=== PATIENT | female | born 1965 | race Caucasian/White ===

== ENCOUNTER 2016-08-08 19:40 | Emergency (ER) | payer BC ==
--- NOTE | 2016-08-09 02:04 | ED ORDER SUMMARY ---
..... Patient: RIZWAN GOFF OrderSheet [facility] VisitID: [id number] [place] [address] 51y, F Registration Date/Time: 08/08/2016 ORDER SHEET Weight: 126.5 kg (stated) Allergies: No Known Drug Allergy GENERAL ORDERS: CBC w Diff [facility]20[facility]34 [facility] (Ack 20:38 [facility] Work[facility]) (21:18 JSanders R.N.) CMP Urgent (20:34 08/08/2016 [facility] (Ack 20:38 [facility] Work[facility]) (21:18 JSanders R.N.) UA-Culture if indicated Urgent (20:34 08/08/2016 [facility] ) (Ack 20:38 [facility] Aquac[facility] Worker) (20:56 JSanders R.N.) PT with INR Urgent (20:34 08/08/2016 [facility] (Ack 20:38 [facility]ac[facility] Worker) (21:18 JSanders R.N.) Bladder Scan (20:34 08/08/2016 [facility]) (Ack 20:56 JSanders R.N.) (21:18 JSanders R.N.) Urine Drug Screen Urgent (20:37 08/08/2016 [facility] (Ack 20:38 [facility] Worker) (20:56 JSanders R.N.) Urine Urgent (20:37 08/08/2016 [facility] ) (Ack 20:38 [facility]ac[facility] Worker) (21:18 JSanders R.N.) MEDICATION ORDERS: IV FLUIDS: IV NS : initial bolus 500 mL (1000 mL/hr), then 250 mL/hr for X2 (NOW) (20:34 08/08/2016 [facility] DO) (Ack 20:56 JSanders R.N.) (21:19 JSanders R.N.) Solu-MEDROL IV 125 mg (NOW) (20:51 08/08/2016 [facility] DO) (Ack 20:56 JSanders R.N.) (21:24 JSanders R.N.) Dilaudid IV 0.5 mg (HIGH ALERT MEDICATION, NOW) (20:51 08/08/2016 [facility]) (Ack 20:56 JSanders R.N.) (21:20 JSanders R.N.) Zofran IV 4 mg (NOW) (20:52 08/08/2016 [facility]) (Ack 20:56 JSanders R.N.) (21:22 JSanders R.N.) ORDER SHEET NOTES: [Electronically signed by Vale Claudio R.N. (05:43 08/09/2016)] [Electronically signed by Misael Rosas MD (09:30 08/09/2016)] [Electronically locked/signed by Vale Claudio R.N. (05:43 08/09/2016)]
--- NOTE | 2016-08-09 02:04 | ED NURSING NOTES ---
Clinical Report - Nurses [facility] [address] [place] [address] 08/08/2016 19:41 Patient: RIZWAN GOFF TRIAGE Triage time 20:2016. Acuity: LEVEL 3. Chief Complaint: BACK PAIN. 20:30 08/08/16. SEPSIS SCREEN: Sepsis Screen. Negative (no infection suspected/documented). LYNNE COMA SCORE: [place] Coma Scale: 15- eyes open spontaneously (4); best verbal response- oriented x 4 (5); best motor response- obeys commands (6). --20:30 Vale Claudio R.N. 20:22 08/08/16. BP: 157/92 (large adult cuff) taken on the left arm, while sitting. HR: 88. RR: 18. O2 saturation: 98% on room air. Temp: 98.7 F (oral). Pain level now: 07/04. --20:30 Vale Claudio R.N. Weight: 126.5 kg stated. Height/Length: 62 inches Per Patient. BMI: 51.1. --20:26 Vale Claudio R.N. Medications Flonase Nasal. --20:25 Vale Claudio R.N. Qvar Inhalation. --20:25 Vale Claudio R.N. Claritin Oral. --20:25 Vale Claudio R.N. Triamterene-HCTZ Oral. --20:26 Vale Claudio R.N. Allergies No Known Drug Allergy. --20:25 Vale Claudio R.N. History Arrived by private vehicle. Historian: patient. Onset. (3 years ago back pain L5 buldging disc and arthritis, recently has had some bowel and urine incontinence). She has had numbness, weakness, tingling, and trouble walking. Treatment PIPING DESIGNER: (Steroids just got off Saturday). PAST MEDICAL HX: Hypertension. Last normal menstrual period now- days ago. SOCIAL HX: Smoker- current status unknown. No alcohol use or drug use. No infectious disease exposure. ABUSE ASSESSMENT: No report of abuse. SELF HARM ASSESSMENT: A self harm assessment was performed. The patient answered "no" to the question "Are you here because you tried to hurt yourself?" and "Have you recently had thoughts about harming or killing others?". --20:30 Vale Claudio R.N. PROBLEMS: Cervical Strain. Bronchitis. Asthma. --20:25 Vale Claudio R.N. ADDITIONAL SURGERIES: Cholecystectomy. Tonsillectomy. --20:25 Vale Claudio R.N. Interventions ID band on patient. To treatment room. --20:30 Vale Claudio R.N. PHYSICAL ASSESSMENT 20:30 08/08/16. Ambulatory to room. Patient gowned. GENERAL / NEURO / PSYCH: Alert. Oriented X 4. Appears in no acute distress. Appears in pain. RESPIRATORY: Respirations not labored. Chest nontender. Breath sounds within normal limits. CVS: Normal heart rate and rhythm. Capillary refill less than 2 seconds. GI / : Abdomen soft and nontender. Bowel sounds within normal limits. CVA tenderness on the left. EXTREMITIES: Sensation intact in extremities. ROM of extremities within normal limits. BACK: Normal inspection of the neck and back. Soft tissue tenderness in the left mid and lower lumbar paraspinous region. --20:30 Vale Claudio R.N. NURSING PROGRESS NOTES 20:31 08/08/16. The plan of care for this patient has been created. Monitoring of patient in place. Patient gowned. Head of bed elevated. Reassurance given. Two patient identifiers checked. Call light placed in reach. Side rails up x 1. Bed placed in lowest position. Brakes of bed on. Patient ready for evaluation- chart flagged and PA notified. --20:31 Vale Claudio R.N. 21:04 08/08/2016 Site #1 started via IV in the left antecubital space with an 20g angiocath; one attempt. Blood drawn: rainbow set. Labeled in the presence of the patient and sent to the lab. Saline lock flushed with 10 mL saline. --21:19 Vale Claudio R.N. 21:19 08/08/2016 Started bag #1 1000 mL IV Fluids IV NS (Saline); bolus of 500 mL over 30 minute(s) then at 1000 mL/hr over 1 hour(s) via site #1 via IV pump. Allergies verified and confirmed 5 rights. IV patency established. IV site checked: no pain, redness, or swelling. IV flushed thoroughly pre- and post-medication administration. --21:19 Vale Claudio R.N. 21:20 08/08/2016 Dilaudid (HYDROmorphone HCl PF) IVP 0.5 mg given over 1 minute(s) via site #1. Allergies verified, confirmed 5 rights and sedative warning given to the patient. IV patency established. IV site checked: no pain, redness, or swelling. IV flushed thoroughly pre- and post-medication administration. IVP given by RN. --21:20 Vale Claudio R.N. 21:22 08/08/2016 Zofran (Ondansetron HCl) IVP 4 mg given over 1 minute(s) via site #1. Allergies verified and confirmed 5 rights. IV patency established. IV site checked: no pain, redness, or swelling. IV flushed thoroughly pre- and post-medication administration. IVP given by RN. --21:22 Vale Claudio R.N. 21:24 08/08/2016 SOLU-MEDROL (MethylPREDNISolone Sodium Succ) IVP 125 mg given over 2 minute(s) via site #1. Allergies verified and confirmed 5 rights. IV patency established. IV site checked: no pain, redness, or swelling. IV flushed thoroughly pre- and post-medication administration. IVP given by RN. --21:24 Vale Claudio R.N. 21:26 08/08/16. ( Bladder scan revealed 19cc). --21:26 Vale Claudio R.N. 21:25 08/08/16. BP: 152/71 (large adult cuff) taken on the right arm, while sitting. HR: 88. RR: 18. O2 saturation: 94% on room air. Pain level now: 0/10. --21:26 Vale Claudio R.N. 21:48 08/08/2016 IV Fluids IV NS via IV site #1 Rate Changed: bag #1 decreased to 250 mL/hr via IV pump. IV patency established. IV site checked: no pain, redness, or swelling. IV flushed thoroughly. Confirmed 5 Rights. --21:48 Vale Claudio R.N. 21:48 08/08/2016 Dilaudid IVP Response: no adverse reaction pain is gone now. Symptoms have improved the patient feels better. --21:49 Vale Claudio R.N. 21:49 08/08/2016 Zofran IVP Response: no adverse reaction pain is gone now. Symptoms have improved the patient feels better. --21:49 Vale Claudio R.N. 21:49 08/08/16. BP: 158/92 (large adult cuff) taken on the right arm. HR: 80. RR: 18. O2 saturation: 100% on room air. Pain level now: 2/10. --21:50 Vale Claudio R.N. 21:50 08/08/16. ( warm blanket given, lights dimmed, resting until transfer comes to take to [facility] for MRI). --21:50 Vale Claudio R.N. 22:07 08/08/16. BP: 126/76 (large adult cuff) taken on the right arm. HR: 78. RR: 18. O2 saturation: 99% on room air. Pain level now: 0/10. --22:09 Vale Claudio R.N. 22:09 08/08/16. ( Transport here for patient. Patient has no pain, she is ready to be transported, pain 0, hydration stopped. Paperwork printed). --22:09 Vale Claudio R.N. 22:22 08/08/16. Patient transported to [facility] by stretcher with nurse. (22:Aug 08 2016). ( Patient transported to [facility]). --22:22 Vale Claudio R.N. 00:38- Pt returns from [facility] for MRI. --00:45 Sveta Christine R.N. 00:45 08/09/16. BP: 156/81. HR: 88. RR: 15 (regular and unlabored). O2 saturation: 95% on room air. Pain level now: 0/10. --00:46 Sveta Christine R.N. 01:05 08/09/16. ( Patient given ice water). --01:05 Vale Claudio R.N. 01:05 08/09/16. BP: 140/93 (large adult cuff) taken on the right arm, while sitting. HR: 87. RR: 18. O2 saturation: 95% on room air. Pain level now: 04/06. --01:07 Vale Claudio R.N. 01:49 08/09/16. BP: 153/93 (large adult cuff) taken on the right arm. HR: 87. RR: 18. O2 saturation: 95% on room air. Pain level now: 04/06. --01:50 Vale Claudio R.N. 01:50 08/09/16. ( Patient resting quietly, will let her continue to rest). --01:50 Vale Claudio R.N. 22:00 08/09/2016 IV Fluids IV NS Discontinued: bag #1. Total amount infused: 750 mL. IV patency established. IV site checked: no pain, redness, or swelling. IV flushed thoroughly. --05:43 Vale Claudio R.N. DISPOSITION / DISCHARGE 02:24 08/09/2016 Site #1 removed upon discharge. Bandaid applied. --02:25 Vale Claudio R.N. 02:08/09/16. Condition at departure: improved. No learning barriers present. Discharge instructions provided and reviewed with the patient. Reviewed diet (low sodium). Patient verbalized understanding. Written instructions provided in Mauritanian. The patient was discharged by the physician. She was discharged home. She left the Emergency Department ambulatory and via private vehicle. Patient driving. --02:25 Vale Claudio R.N. 02:24 08/09/16. BP: 145/81 (large adult cuff) taken on the right arm, while sitting. HR: 97. RR: 18. O2 saturation: 96% on room air. Temp: 98.3 F (oral). Pain level now: 04/06. --02:25 Vale Claudio R.N. 02:32 08/09/16. Reviewed medication(s) side effects, precautions, dosing and course information. Prescription(s) given to the patient. --02:32 Vale Claudio R.N. Departure time: 02:34 Aug 09 2016. --02:34 Vale Claudio R.N. Locked/Released at 08/09/2016 5:43 by Vale Claudio R.N.
--- NOTE | 2016-08-09 02:04 | ED CLINICAL REPORT ---
Clinical Report - Physicians/Mid Levels [facility] [address] [place] [address] 08/08/2016 19:41 Patient: RIZWAN GOFF Time Seen: 20:33. Arrived- By private vehicle. Historian- patient. HISTORY OF PRESENT ILLNESS Chief Complaint: BACK PAIN. Onset- about 2 months ago; worse in past week and it is still present. It was gradual in onset and has been waxing/waning. Modifying factors- worsened by walking or bending over. Relieved by remaining still. It is described as being moderate in degree. It is described as being in the area of the left upper lumbar spine, left mid lumbar spine, left lower lumbar spine, right upper lumbar spine and right mid lumbar spine. It is described as being in the area of the right lower lumbar spine. The quality is noted to be "pain" and similar to prior episodes. No radiation. Intermittent bladder dysfunction. The bladder dysfunction is described as incontinence. Bowel dysfunction- incontinence. Sensory loss (bilateral feet). Motor loss. Additional history - 3 years ago back pain L5 buldging disc and arthritis, recently has had some bowel and urine incontinence. She has had numbness, weakness, tingling, and trouble walking. Patient notes the possibility of an injury but denies injury to the head or neck. No other injury. Similar symptoms previously: Evaluation/treatment- course of steroids - finished 5 days ago. Recent medical care: The patient was seen recently at another facility. Diagnosis: back pain. REVIEW OF SYSTEMS No fever, skin rash, headache, sore throat or cough. No difficulty breathing, chest pain, abdominal pain, nausea or vomiting. No diarrhea, black stools or bloody stools. She has had difficulty with urination. The patient has had urinary frequency. All systems otherwise negative, except as recorded above. PAST HISTORY Hypertension. She has had prior back pain (with lumbar disc disease seen on MRI 1 year ago - evaluated at the [facility]"). PCP: Chiki Mak. No history of aortic aneurysm. Environmental allergies. Additional Surgeries: Cholecystectomy. Tonsillectomy. Medications: Triamterene-HCTZ Oral. Claritin Oral. Qvar Inhalation. Flonase Nasal. Allergies: No Known Drug Allergy. SOCIAL HISTORY Never smoker. No alcohol use or drug use. Is a local resident. Patient is employed. (works in [place] at [employer]). ADDITIONAL NOTES The nursing notes have been reviewed. PHYSICAL EXAM Vital Signs: 08/08/2016 20:22 BP: 157/92. HR: 88. RR: 18. O2 saturation: 98%. Temp: 98.7 F. Pain level now: 5/10. Appearance: Alert. Patient in mild distress. HEENT: Normal external inspection. Eyes: No scleral icterus or pale conjunctivae. Neck: Normal inspection. Neck nontender. Painless ROM. CVS: Heart sounds normal. Pulses normal. Respiratory: No respiratory distress. Breath sounds normal. Abdomen: No visible injury. Soft and nontender. No organomegaly. No mass. Back: Normal inspection. Mild soft tissue tenderness in the right lower and left lower lumbar area. Skin: Skin warm and dry. Normal skin color. Normal skin turgor. Extremities: Extremities exhibit normal ROM. Extremities nontender. Neuro: Oriented X 3. Mood/affect normal. Sensory deficit present. (bilateral feet). Altered sensation to light touch. Straight leg raising: negative on the right and negative on the left. Reflex exam: right patellar 1+, left patellar 1+, right Achilles 0 and left Achilles 0. LABS, X-RAYS, AND EKG MRI T-Spine: Note- the patient was transferred to [facility] for MRI of the thoracic and lumbar spines. The power and recovery shift engineer radiology preliminary report on the thoracic spine revealed: mild diffuse degenerative changes commensurate with age. No disc herniation or spinal stenosis no abnormal cord signal or epidural hematoma. The study was interpreted contemporaneously by me and discussed with the radiologist. MRI L-Spine: Note- Mild dependent edema in the superficial subcutaneous fat mild degenerative change without disc herniation or spinal stenosis normal conus and cauda equina no abnormal enhancement. The study was interpreted contemporaneously by me and discussed with the radiologist. Laboratory Tests: UA-Culture if indicated: (KIRSTEN: 08/08/2016 20:20) ( MsgRcvd 08/08/2016 21:02) Final results Test Result Flag Units (Reference) URINE COLOR YELLOW URINE APPEARANCE CLEAR URINE GLUCOSE NEGATIVE (NEGATIVE) URINE BILIRUBIN NEGATIVE (NEGATIVE) URINE KETONE NEGATIVE (NEGATIVE) URINE SPECIFIC GRAVITY >= 1.030 (1.010-1.030) URINE PH 6.0 (5.0-8.0) URINE PROTEIN NEGATIVE (NEGATIVE) URINE UROBILINOGEN 0.2 EU/dL (0.2-1.0) URINE NITRITE NEGATIVE (NEGATIVE) URINE BLOOD 3+ (NEGATIVE) URINE LEUK ESTERASE NEGATIVE (NEGATIVE) URINE RBC 10-25 rbc/hpf (0-1) URINE WBC 1-3 wbc/hpf (0-1) URINE EPITHELIAL CELLS 1-3 EPI/hpf (0-5) URINE BACTERIA TRACE (<1+) (NONE SEEN) URINE COMMENT CULT NOT INDICATED 2+ MUCUSURINE CULTURES ARE SET-UP BASED ON THE FOLLOWING CRITERIA:POSITIVE NITRITEPOSITIVE LEUKOCYTE ESTERASEGREATER THAN 10 WHITE BLOOD CELLSMODERATE (2+) OR GREATER BACTERIA Urine: (KIRSTEN: 08/08/2016 20:20) ( [facility] 08/08/2016 20:57) Final results Test Result Flag Units (Reference) URINE NEGATIVE CBC w Diff: (KIRSTEN: 08/08/2016 21:05) ( [facility] 08/08/2016 21:36) Final results Test Result Flag Units (Reference) WHITE BLOOD COUNT 11.3 K/uL (4.5-11.5) RED BLOOD COUNT 4.50 M/uL (4.00-5.20) HEMOGLOBIN 12.3 gm/dL (12.0-16.0) HEMATOCRIT 37.5 % (36.0-46.0) MEAN CELL VOLUME 83 fL (80-100) MEAN CORPUSCULAR HGB 27 pg (26-34) MEAN CORPUSCULAR HGB CONC 33 g/dL (31-37) RED CELL DISTRIBUTION WIDTH 14.4 % (11.6-14.8) PLATELET COUNT 276 K/uL (150-400) NEUTROPHIL % 67.7 % (50-75) LYMPH % 21.5 L % (25-40) MONO % 7.3 % (3-14) EOSINOPHIL % 3.2 % (0-4) BASOPHIL % 0.3 % (0-2) PT with INR: (KIRSTEN: 08/08/2016 21:05) ( [facility] 08/08/2016 21:39) Final results Test Result Flag Units (Reference) INR 0.9 (0.8-1.2) Low Intensity Therapy: INR 1.5-2.0 PT range 18.5-23.1Mod.Intensity Therapy: INR 2.0-3.0 PT range 23.1-31.5High Intensity Therapy: INR 2.5-3.5 PT range 27.4-35.5High Intensity Therapy 2: INR 3.0-4.0 PT range 31.5-39.3 Urine Drug Screen: (KIRSTEN: 08/08/2016 20:20) ( [facility] 08/08/2016 21:07) Final results Test Result Flag Units (Reference) AMPHETAMINE/METHAMPHETAMINE NEGATIVE (NEGATIVE) BARBITURATE NEGATIVE (NEGATIVE) BENZODIAZEPINE NEGATIVE (NEGATIVE) CANNABINOID NEGATIVE (NEGATIVE) COCAINE NEGATIVE (NEGATIVE) ECSTASY NEGATIVE (NEGATIVE) METHADONE NEGATIVE (NEGATIVE) OPIATE NEGATIVE (NEGATIVE) The urine drug screen is a qualitative screening test fordrug overdose and abuse. All screen results should beconsidered as presumptive.Drugs screened for are as follows:BenzodiazepinesCocaineAmphetamines/MetamphetaminesTHC (Tetrahydrocannabinol)OpiatesBarbituratesEcstasyMethadonePositive results are unconfirmed. For confirmation, notifythe lab for the specimen to be sent to the reference lab.All confirmations must be performed by a differentmethodology.The ingestion of natural herbal and plant productscontaining Ephedra/Ephedra metabolites can produce in urineone or more substances capable of cross reacting withamphetamine/methamphetamine immunoassays. These testsprovide a preliminary result only. A more specificalternative chemical method must be used to obtain aconfirmed analytical result. CMP: (KIRSTEN: 08/08/2016 21:05) ( [facility] 08/08/2016 21:40) Final results Test Result Flag Units (Reference) GLUCOSE 87 mg/dL (70-110) BUN 16 mg/dL (7-18) CREATININE 0.7 mg/dL (0.6-1.3) Estimated GFR >60 mL/min Estimated GFR- >60 mL/min Note: Persistent reduction over 3 months in eGFR<60 mL/min/1.73 m2 defines CKD. Patients with eGFR values>=60 mL/min/1.73 m2 may also have CKD if evidence ofpersistent proteinuria. Additional information may be foundat www.kidney.org. SODIUM 143 mmol/L (136-145) POTASSIUM 3.4 L mmol/L (3.5-5.1) CHLORIDE 106 mmol/L (98-107) CARBON DIOXIDE 28 mmol/L (21-32) CALCIUM 8.7 mg/dL (8.5-10.1) TOTAL PROTEIN 7.1 g/dL (6.4-8.2) ALBUMIN 3.5 g/dL (3.3-5.0) BILIRUBIN, TOTAL 0.3 mg/dL (0.0-1.0) ALKALINE PHOSPHATASE 68 U/L (46-116) AST (SGOT) 18 U/L (15-37) ALT (SGPT) 28 U/L (12-78) . PROGRESS AND PROCEDURES Course of Care: 21:05 08/08/16. Care transferred to Dr Misael Rosas secondary to change of shift. Labs, MRI pending - attempting to obtain after hours MRI at [facility] (tech in house completing MRI until 22:00, but after this they may need to call on another tech per warehouse foreman) Dr. Lara and I discussed the patient's history and examination findings. He requested that I follow up on the results of the patient's labs and MRI. I subsequently reviewed the patient's history with her and examined the patient and my findings were consistent with those noted by Dr. Lara. Additionally, I also performed a rectal exam - she had a normal perianal wink and normal sphincter tone. Brown stool on the glove was noted to be guaiac negative. - MW. Patient/family counseled. Old ED records reviewed. Disposition: Discharged. Condition: stable. CLINICAL IMPRESSION Nontraumatic lumbar back pain. Essential hypertension. Urinary incontinence. intermittent incontinence for stool. INSTRUCTIONS (Talk with your primary care provider about what he would benefit from any adjustments to your antihypertensive medications as discussed.). Warnings: GENERAL WARNINGS: Return or contact your physician immediately if your condition worsens or changes unexpectedly, if not improving as expected, or if other problems arise. Your Current Medications: CONTINUE TAKING THE FOLLOWING MEDICATIONS: Claritin Oral. Flonase Nasal. Qvar Inhalation. Triamterene-HCTZ Oral. Prescription Medications: Medrol Dosepak: take according to package directions. Dispense one (1) dosepak. No refills. Substitution is permissible. Follow-up: Follow up with your doctor tomorrow. Call for the next available appointment. Screening today revealed the patient's blood pressure to be in the hypertensive range. The patient should follow up with a primary care provider for blood pressure management. Understanding of the discharge instructions verbalized by patient. (Electronically signed by Misael Rosas MD 08/09/2016 9:30)
--- NOTE | 2016-08-09 02:04 | ED CLINICAL REPORT ---
Clinical Report - Physicians/Mid Levels [facility] [address] [place] [address] 08/08/2016 19:41 Patient: RIZWAN GOFF Time Seen: 20:33. Arrived- By private vehicle. Historian- patient. HISTORY OF PRESENT ILLNESS Chief Complaint: BACK PAIN. Onset- about 2 months ago; worse in past week and it is still present. It was gradual in onset and has been waxing/waning. Modifying factors- worsened by walking or bending over. Relieved by remaining still. It is described as being moderate in degree. It is described as being in the area of the left upper lumbar spine, left mid lumbar spine, left lower lumbar spine, right upper lumbar spine and right mid lumbar spine. It is described as being in the area of the right lower lumbar spine. The quality is noted to be "pain" and similar to prior episodes. No radiation. Intermittent bladder dysfunction. The bladder dysfunction is described as incontinence. Bowel dysfunction- incontinence. Sensory loss (bilateral feet). Motor loss. Additional history - 3 years ago back pain L5 buldging disc and arthritis, recently has had some bowel and urine incontinence. She has had numbness, weakness, tingling, and trouble walking. Patient notes the possibility of an injury but denies injury to the head or neck. No other injury. Similar symptoms previously: Evaluation/treatment- course of steroids - finished 5 days ago. Recent medical care: The patient was seen recently at another facility. Diagnosis: back pain. REVIEW OF SYSTEMS No fever, skin rash, headache, sore throat or cough. No difficulty breathing, chest pain, abdominal pain, nausea or vomiting. No diarrhea, black stools or bloody stools. She has had difficulty with urination. The patient has had urinary frequency. All systems otherwise negative, except as recorded above. PAST HISTORY Hypertension. She has had prior back pain (with lumbar disc disease seen on MRI 1 year ago - evaluated at the [facility] PCP: Chiki Mak. No history of aortic aneurysm. Environmental allergies. Additional Surgeries: Cholecystectomy. Tonsillectomy. Medications: Triamterene-HCTZ Oral. Claritin Oral. Qvar Inhalation. Flonase Nasal. Allergies: No Known Drug Allergy. SOCIAL HISTORY Never smoker. No alcohol use or drug use. Is a local resident. Patient is employed. (works in [place] at [employer]). ADDITIONAL NOTES The nursing notes have been reviewed. PHYSICAL EXAM Vital Signs: 08/08/2016 20:22 BP: 157/92. HR: 88. RR: 18. O2 saturation: 98%. Temp: 98.7 F. Pain level now: 5/10. Appearance: Alert. Patient in mild distress. HEENT: Normal external inspection. Eyes: No scleral icterus or pale conjunctivae. Neck: Normal inspection. Neck nontender. Painless ROM. CVS: Heart sounds normal. Pulses normal. Respiratory: No respiratory distress. Breath sounds normal. Abdomen: No visible injury. Soft and nontender. No organomegaly. No mass. Back: Normal inspection. Mild soft tissue tenderness in the right lower and left lower lumbar area. Skin: Skin warm and dry. Normal skin color. Normal skin turgor. Extremities: Extremities exhibit normal ROM. Extremities nontender. Neuro: Oriented X 3. Mood/affect normal. Sensory deficit present. (bilateral feet). Altered sensation to light touch. Straight leg raising: negative on the right and negative on the left. Reflex exam: right patellar 1+, left patellar 1+, right Achilles 0 and left Achilles 0. LABS, X-RAYS, AND EKG MRI T-Spine: Note- the patient was transferred to [facility] for MRI of the thoracic and lumbar spines. The production shift supervisor radiology preliminary report on the thoracic spine revealed: mild diffuse degenerative changes commensurate with age. No disc herniation or spinal stenosis no abnormal cord signal or epidural hematoma. The study was interpreted contemporaneously by me and discussed with the radiologist. MRI L-Spine: Note- Mild dependent edema in the superficial subcutaneous fat mild degenerative change without disc herniation or spinal stenosis normal conus and cauda equina no abnormal enhancement. The study was interpreted contemporaneously by me and discussed with the radiologist. Laboratory Tests: UA-Culture if indicated: (KIRSTEN: 08/08/2016 20:20) ( MsgRcvd 08/08/2016 21:02) Final results Test Result Flag Units (Reference) URINE COLOR YELLOW URINE APPEARANCE CLEAR URINE GLUCOSE NEGATIVE (NEGATIVE) URINE BILIRUBIN NEGATIVE (NEGATIVE) URINE KETONE NEGATIVE (NEGATIVE) URINE SPECIFIC GRAVITY >= 1.030 (1.010-1.030) URINE PH 6.0 (5.0-8.0) URINE PROTEIN NEGATIVE (NEGATIVE) URINE UROBILINOGEN 0.2 EU/dL (0.2-1.0) URINE NITRITE NEGATIVE (NEGATIVE) URINE BLOOD 3+ (NEGATIVE) URINE LEUK ESTERASE NEGATIVE (NEGATIVE) URINE RBC 10-25 rbc/hpf (0-1) URINE WBC 1-3 wbc/hpf (0-1) URINE EPITHELIAL CELLS 1-3 EPI/hpf (0-5) URINE BACTERIA TRACE (<1+) (NONE SEEN) URINE COMMENT CULT NOT INDICATED 2+ MUCUSURINE CULTURES ARE SET-UP BASED ON THE FOLLOWING CRITERIA:POSITIVE NITRITEPOSITIVE LEUKOCYTE ESTERASEGREATER THAN 10 WHITE BLOOD CELLSMODERATE (2+) OR GREATER BACTERIA Urine: (KIRSTEN: 08/08/2016 20:20) ( [facility] 08/08/2016 20:57) Final results Test Result Flag Units (Reference) URINE NEGATIVE CBC w Diff: (KIRSTEN: 08/08/2016 21:05) ( [facility] 08/08/2016 21:36) Final results Test Result Flag Units (Reference) WHITE BLOOD COUNT 11.3 K/uL (4.5-11.5) RED BLOOD COUNT 4.50 M/uL (4.00-5.20) HEMOGLOBIN 12.3 gm/dL (12.0-16.0) HEMATOCRIT 37.5 % (36.0-46.0) MEAN CELL VOLUME 83 fL (80-100) MEAN CORPUSCULAR HGB 27 pg (26-34) MEAN CORPUSCULAR HGB CONC 33 g/dL (31-37) RED CELL DISTRIBUTION WIDTH 14.4 % (11.6-14.8) PLATELET COUNT 276 K/uL (150-400) NEUTROPHIL % 67.7 % (50-75) LYMPH % 21.5 L % (25-40) MONO % 7.3 % (3-14) EOSINOPHIL % 3.2 % (0-4) BASOPHIL % 0.3 % (0-2) PT with INR: (KIRSTEN: 08/08/2016 21:05) ( [facility] 08/08/2016 21:39) Final results Test Result Flag Units (Reference) INR 0.9 (0.8-1.2) Low Intensity Therapy: INR 1.5-2.0 PT range 18.5-23.1Mod.Intensity Therapy: INR 2.0-3.0 PT range 23.1-31.5High Intensity Therapy: INR 2.5-3.5 PT range 27.4-35.5High Intensity Therapy 2: INR 3.0-4.0 PT range 31.5-39.3 Urine Drug Screen: (KIRSTEN: 08/08/2016 20:20) ( [facility] 08/08/2016 21:07) Final results Test Result Flag Units (Reference) AMPHETAMINE/METHAMPHETAMINE NEGATIVE (NEGATIVE) BARBITURATE NEGATIVE (NEGATIVE) BENZODIAZEPINE NEGATIVE (NEGATIVE) CANNABINOID NEGATIVE (NEGATIVE) COCAINE NEGATIVE (NEGATIVE) ECSTASY NEGATIVE (NEGATIVE) METHADONE NEGATIVE (NEGATIVE) OPIATE NEGATIVE (NEGATIVE) The urine drug screen is a qualitative screening test fordrug overdose and abuse. All screen results should beconsidered as presumptive.Drugs screened for are as follows:BenzodiazepinesCocaineAmphetamines/MetamphetaminesTHC (Tetrahydrocannabinol)OpiatesBarbituratesEcstasyMethadonePositive results are unconfirmed. For confirmation, notifythe lab for the specimen to be sent to the reference lab.All confirmations must be performed by a differentmethodology.The ingestion of natural herbal and plant productscontaining Ephedra/Ephedra metabolites can produce in urineone or more substances capable of cross reacting withamphetamine/methamphetamine immunoassays. These testsprovide a preliminary result only. A more specificalternative chemical method must be used to obtain aconfirmed analytical result. CMP: (KIRSTEN: 08/08/2016 21:05) ( [facility] [place] 21:40[place] Final results Test Result Flag Units (Reference) GLUCOSE 87 mg/dL (70-110) BUN 16 mg/dL (7-18) CREATININE 0.7 mg/dL (0.6-1.3) Estimated GFR >60 mL/min Estimated GFR- >60 mL/min Note: Persistent reduction over 3 months in eGFR<60 mL/min/1.73 m2 defines CKD. Patients with eGFR values>=60 mL/min/1.73 m2 may also have CKD if evidence ofpersistent proteinuria. Additional information may be foundat www.kidney.org. SODIUM 143 mmol/L (136-145) POTASSIUM 3.4 L mmol/L (3.5-5.1) CHLORIDE 106 mmol/L (98-107) CARBON DIOXIDE 28 mmol/L (21-32) CALCIUM 8.7 mg/dL (8.5-10.1) TOTAL PROTEIN 7.1 g/dL (6.4-8.2) ALBUMIN 3.5 g/dL (3.3-5.0) BILIRUBIN, TOTAL 0.3 mg/dL (0.0-1.0) ALKALINE PHOSPHATASE 68 U/L (46-116) AST (SGOT) 18 U/L (15-37) ALT (SGPT) 28 U/L (12-78) . PROGRESS AND PROCEDURES Course of Care: 21:05 08/08/16. Care transferred to Dr Misael Rosas secondary to change of shift. Labs, MRI pending - attempting to obtain after hours MRI at [facility] (tech in house completing MRI until 22:00, but after this they may need to call on another tech per warehouse production worker) Dr. Lara and I discussed the patient's history and examination findings. He requested that I follow up on the results of the patient's labs and MRI. I subsequently reviewed the patient's history with her and examined the patient and my findings were consistent with those noted by Dr. Lara. Additionally, I also performed a rectal exam - she had a normal perianal wink and normal sphincter tone. Brown stool on the glove was noted to be guaiac negative. - MW. Patient/family counseled. Old ED records reviewed. Disposition: Discharged. Condition: stable. CLINICAL IMPRESSION Nontraumatic lumbar back pain. Essential hypertension. Urinary incontinence. intermittent incontinence for stool. INSTRUCTIONS (Talk with your primary care provider about what he would benefit from any adjustments to your antihypertensive medications as discussed.). Warnings: GENERAL WARNINGS: Return or contact your physician immediately if your condition worsens or changes unexpectedly, if not improving as expected, or if other problems arise. Your Current Medications: CONTINUE TAKING THE FOLLOWING MEDICATIONS: Claritin Oral. Flonase Nasal. Qvar Inhalation. Triamterene-HCTZ Oral. Prescription Medications: Medrol Dosepak: take according to package directions. Dispense one (1) dosepak. No refills. Substitution is permissible. Follow-up: Follow up with your doctor tomorrow. Call for the next available appointment. Screening today revealed the patient's blood pressure to be in the hypertensive range. The patient should follow up with a primary care provider for blood pressure management. Understanding of the discharge instructions verbalized by patient. (Electronically signed by Misael Rosas MD 08/09/2016 9:30)
--- NOTE | 2016-08-09 02:04 | ED ORDER SUMMARY ---
..... Patient: RIZWAN GOFF OrderSheet [facility] VisitID: [id number] [place] [address] 51y, F Registration Date/Time: 08/08/2016 ORDER SHEET Weight: 126.5 kg (stated) Allergies: No Known Drug Allergy GENERAL ORDERS: CBC w Diff Urgent (20:34 [facility] (Ack 20:38 [facility]) (21:18 JSanders R.N.) CMP Urgent (20:34 08/08/2016 [facility] (Ack 20:38 [facility]) (21:18 JSanders R.N.) UA-Culture if indicated Urgent (20:34 08/08/2016 [facility] ) (Ack 20:38 CH[facility] Machine Loader) (20:56 JSanders R.N.) PT with INR Urgent (20:34 [facility]/08/2016 [facility] (Ack 20:38 [facility]) (21:18 JSanders R.N.) Bladder Scan (20:34 08/08/2016 [facility] (Ack 20:56 JSanders R.N.) (21:18 JSanders R.N.) Urine Drug Screen Urgent (20:37 08/08/2016 [facility] (Ack 20:38 [facility]) (20:56 JSanders R.N.) Urine Urgent (20:37 08/08/2016 [facility] ) (Ack 20:38 [facility] Load[facility]) (21:18 JSanders R.N.) MEDICATION ORDERS: IV FLUIDS: IV NS : initial bolus 500 mL (1000 mL/hr), then 250 mL/hr for X2 (NOW) (20:34 08/08/2016 [facility] DO) (Ack 20:56 JSanders R.N.) (21:19 JSanders R.N.) Solu-MEDROL IV 125 mg (NOW) (20:51 08/08/2016 [facility] DO) (Ack 20:56 JSanders R.N.) (21:24 JSanders R.N.) Dilaudid IV 0.5 mg (HIGH ALERT MEDICATION, NOW) (20:51 08/08/2016 [facility]) (Ack 20:56 JSanders R.N.) (21:20 JSanders R.N.) Zofran IV 4 mg (NOW) (20:52 08/08/2016 [facility]) (Ack 20:56 JSanders R.N.) (21:22 JSanders R.N.) ORDER SHEET NOTES: [Electronically signed by Vale Claudio R.N. (05:43 08/09/2016)] [Electronically signed by Misael Rosas MD (09:30 08/09/2016)] [Electronically locked/signed by Vale Claudio R.N. (05:43 08/09/2016)]
--- NOTE | 2016-08-09 09:31 | ED MED RECONCILIATION SUMMARY ---
Patient: RIZWAN GOFF Medication Reconciliation Report [facility] VisitID: [id number] [address] [place] [address] 51y, F Registration Date/Time: 08/08/2016 Weight: 126.5 kg Height/Length: 62 in. BMI: 51.1 ALLERGIES: No Known Drug Allergy The patient's Home Medications are listed below: CONTINUE TAKING THE FOLLOWING MEDICATIONS: Claritin Oral Flonase Nasal Qvar Inhalation Triamterene-HCTZ Oral The source(s) of the original Home Medication information: Not obtained. The following Medications were given to the patient in the Emergency Department: IV NS IV Fluids bolus 500 mL over 30 minute(s), then 1000 mL/hr, administered: 08/08/2016 9:19:00 PM Dilaudid [IVP] IVP 0.5 mg, administered: 08/08/2016 9:20:00 PM Zofran [IVP] IVP 4 mg, administered: 08/08/2016 9:22:00 PM SOLU-MEDROL [IVP] IVP 125 mg, administered: 08/08/2016 9:24:00 PM The following Medications were prescribed to the patient: Medrol Dosepak: take according to package directions. Dispense one (1) dosepak. No refills. Substitution is permissible. -- Misael Rosas MD
--- NOTE | 2016-08-09 09:31 | ED MAR SUMMARY ---
..... Medication Administration Record [facility] [address] [place] [address] Patient: RIZWAN GOFF Visit ID: [id number] 51y, F Weight: 126.5 kg Height/Length: 62 in BMI: 51.1 ALLERGIES: No Known Drug Allergy Start 21:19 08/08/2016 Vale Claudio R.N., Stop 22:00 08/09/2016 Vale Claudio R.N. Medication Administered: IV NS (SALINE), Dose: IV Fluids over 1 hour(s), Rate: 1000 mL/hr, Bolus: 500 mL over 30 minute(s), Dispensed: 1000 mL bag, Site: #1 left AC. Medication Ordered: IV NS : initial bolus 500 mL (1000 mL/hr), then 250 mL/hr for X2 (NOW). Given 21:08/08/2016 Vale Claudio R.N. Medication Administered: DILAUDID [IVP] (HYDROMORPHONE HCL PF), Dose: 0.5 mg IVP over 1 minute(s), Site: #1 left AC. Medication Ordered: Dilaudid IV 0.5 mg (HIGH ALERT MEDICATION, NOW). Given :08/08/2016 Vale Claudio R.N. Medication Administered: ZOFRAN [IVP] (ONDANSETRON HCL), Dose: 4 mg IVP over 1 minute(s), Site: #1 left AC. Medication Ordered: Zofran IV 4 mg (NOW). Given :08/08/2016 Vale Claudio R.N. Medication Administered: SOLU-MEDROL [IVP] (METHYLPREDNISOLONE SODIUM SUCC), Dose: 125 mg IVP over 2 minute(s), Site: #1 left AC. Medication Ordered: Solu-MEDROL IV 125 mg (NOW).
--- NOTE | 2016-08-09 09:31 | ED MAR SUMMARY ---
..... Medication Administration Record [facility] [address] [place] [address] Patient: RIZWAN GOFF Visit ID: [id number] 51y, F Weight: 126.5 kg Height/Length: 62 in BMI: 51.1 ALLERGIES: No Known Drug Allergy Start 21:19 08/08/2016 Vale Claudio R.N., Stop 22:00 08/09/2016 Vale Claudio R.N. Medication Administered: IV NS (SALINE), Dose: IV Fluids over 1 hour(s), Rate: 1000 mL/hr, Bolus: 500 mL over 30 minute(s), Dispensed: 1000 mL bag, Site: #1 left AC. Medication Ordered: IV NS : initial bolus 500 mL (1000 mL/hr), then 250 mL/hr for X2 (NOW). Given 21:08/08/2016 Vale Claudio R.N. Medication Administered: DILAUDID [IVP] (HYDROMORPHONE HCL PF), Dose: 0.5 mg IVP over 1 minute(s), Site: #1 left AC. Medication Ordered: Dilaudid IV 0.5 mg (HIGH ALERT MEDICATION, NOW). Given :08/08/2016 Vale Claudio R.N. Medication Administered: ZOFRAN [IVP] (ONDANSETRON HCL), Dose: 4 mg IVP over 1 minute(s), Site: #1 left AC. Medication Ordered: Zofran IV 4 mg (NOW). Given :08/08/2016 Vale Claudio R.N. Medication Administered: SOLU-MEDROL [IVP] (METHYLPREDNISOLONE SODIUM SUCC), Dose: 125 mg IVP over 2 minute(s), Site: #1 left AC. Medication Ordered: Solu-MEDROL IV 125 mg (NOW).
--- NOTE | 2016-08-09 09:31 | ED DISCHARGE INSTRUCTIONS ---
Patient: RIZWAN GOFF General Instructions [facility] VisitID: [id number] [place] [address] 51y, F Registration Date/Time: 08/08/2016 Nontraumatic lumbar back pain. Essential hypertension. Urinary incontinence. intermittent incontinence for stool. INSTRUCTIONS (Talk with your primary care provider about what he would benefit from any adjustments to your antihypertensive medications as discussed.). Warnings: GENERAL WARNINGS: Return or contact your physician immediately if your condition worsens or changes unexpectedly, if not improving as expected, or if other problems arise. Your Current Medications: CONTINUE TAKING THE FOLLOWING MEDICATIONS: Claritin Oral. Flonase Nasal. Qvar Inhalation. Triamterene-HCTZ Oral. Prescription Medications: Medrol Dosepak: take according to package directions. Dispense one (1) dosepak. No refills. Substitution is permissible. Follow-up: Follow up with your doctor tomorrow. Call for the next available appointment. Screening today revealed the patient's blood pressure to be in the hypertensive range. The patient should follow up with a primary care provider for blood pressure management. Understanding of the discharge instructions verbalized by patient. ADDITIONAL INFORMATION Back Pain [Acute Or Chronic] Back pain is usually caused by an injury to the muscles or ligaments of the spine. Sometimes the disks that separate each bone in the spine may bulge and cause pain by pressing on a nearby nerve. Back pain may also appear after a sudden twisting/bending force (such as in a car accident), after a simple awkward movement, or lifting something heavy with poor body positioning. In either case, muscle spasm is often present and adds to the pain. Acute back pain usually gets better in one to two weeks. Back pain related to disk disease, arthritis in the spinal joints or spinal stenosis (narrowing of the spinal canal) can become chronic and last for months or years. Unless you had a physical injury (for example, a car accident or fall) X-rays are usually not ordered for the initial evaluation of back pain. If pain continues and does not respond to medical treatment, x-rays and other tests may be performed at a later time. Home Care: You may need to stay in bed the first few days. But, as soon as possible, begin sitting or walking to avoid problems with prolonged bed rest (muscle weakness, worsening back stiffness and pain, blood clots in the legs). When in bed, try to find a position of comfort. A firm mattress is best. Try lying flat on your back with pillows under your knees. You can also try lying on your side with your knees bent up towards your chest and a pillow between your knees. Avoid prolonged sitting. This puts more stress on the lower back than standing or walking. During the first two days after injury, apply an ICE PACK to the painful area for 20 minutes every 2-4 hours. This will reduce swelling and pain. HEAT (hot shower, hot bath or heating pad) works well for muscle spasm. You can start with ice, then switch to heat after two days. Some patients feel best alternating ice and heat treatments. Use the one method that feels the best to you. You may use acetaminophen (Tylenol) or ibuprofen (Motrin, Advil) to control pain, unless another pain medicine was prescribed. [NOTE: If you have chronic liver or kidney disease or ever had a stomach ulcer or GI bleeding, talk with your doctor before using these medicines.] Be aware of safe lifting methods and do not lift anything over 15 pounds until all the pain is gone. Follow Up with your doctor or this facility if your symptoms do not start to improve after one week. Physical therapy may be needed. [NOTE: If X-rays were taken, they will be reviewed by a radiologist. You will be notified of any new findings that may affect your care.] Get Prompt Medical Attention if any of the following occur: Pain becomes worse or spreads to your legs Weakness or numbness in one or both legs Loss of bowel or bladder control Numbness in the groin or genital area High Blood Pressure --Established High Blood Pressure (Hypertension) is a chronic disease. The cause is unknown in most cases. It can usually be controlled with lifestyle changes and/or medicines. Symptoms of high blood pressure may include headache, dizziness, visual changes, chest pain and shortness of breath. Sometimes it causes no symptoms at all. However, even if there are no symptoms, untreated high blood pressure increases the risk of heart attack, also known as acute myocardial infarction, or AMI, and stroke. It is a serious health risk and should not be ignored. A normal blood pressure is 120/80 or less. The first (top) number is the "systolic" pressure. The second (bottom) number is the "diastolic" pressure. Hypertension exists when either the top number is 140 or higher, OR the bottom number is 90 or higher on repeated measurements. Home Care: All patients with high blood pressure should do the following to lower their pressure. If you are on medicines, then these methods may reduce or eliminate your need for medicines in the future. Begin a weight loss program if you are overweight. Reduce your salt intake. Avoid high salt foods (olives, pickles, smoked meats, salted potato chips, etc.). Do not add salt to your food at the table. Use only small amounts of salt when cooking. Begin an exercise program. Discuss with your doctor what type of exercise program would be best for you. It doesn't have to be difficult. Even brisk walking for 20 minutes three times a week is a good form of exercise. Avoid medicines which contain heart stimulants. This includes many cold and sinus decongestant pills and sprays as well as diet pills. Check the warnings about hypertension on the label. Stimulants such as amphetamine or cocaine could be lethal for someone with hypertension. Never take these. Limit your caffeine intake or switch to caffeine-free products. Stop smoking. If you are a long-time smoker, this can be hard. Enroll in a stop-smoking program to improve your chance of success. Learning how to handle stress better is an important part of any program to lower blood pressure. Learn about relaxation methods such as meditation, yoga or biofeedback. If medicines were prescribed, take them exactly as directed. Missing doses may cause your blood pressure get out of control. Consider buying an automatic blood pressure machine (available at most pharmacies). Use this to monitor your blood pressure at home and report the results to your doctor. Follow Up: Regular visits to your own physician for blood pressure checks and medicine adjustment is an important part of your care. Make a follow-up appointment as directed by our staff. Get Prompt Medical Attention if any of the following occur: Chest pain or shortness of breath Severe headache Throbbing or rushing sound in the ears Nosebleed Sudden severe abdominal pain Extreme drowsiness, confusion or fainting Dizziness or vertigo (dizziness with spinning sensation) Weakness of an arm or leg or one side of the face Difficulty with speech or vision Urinary Incontinence (Male) Urinary Incontinence means loss of control of the bladder. This may be due to infection, medicine, aging, poor pelvic muscle tone, bladder spasms, obesity or urinary retention. URGE INCONTINENCE (also called "overactive bladder") is a sudden urge to urinate even though there may not be much urine in the bladder. The need to urinate often during the night is common. It is due to bladder spasms. It is a common cause of incontinence. Treatment of this condition depends on the cause. Infections of the bladder are treated with antibiotics. Urinary retention is treated with a bladder catheter. Home Care: Avoid foods and drinks that may irritate the bladder (alcohol, caffeine, carbonated drinks, chocolate, citrus fruits and acidic fruits and juices). Limit fluid intake to 6 to 8 cups a day. Lose weight if you are overweight. This will reduce your symptoms. If necessary, wear absorbent pads to catch urine. Bathe daily to maintain good hygiene. If an antibiotic was prescribed to treat a bladder infection, be sure to take it until finished, even if you are feeling better before then. If a bladder catheter was left in place, it is important to keep the bacteria from getting into the collection bag. Use a leg band to secure the drainage tube, so it does not pull on the catheter. Drain the collection bag when it becomes full using the drain spout at the bottom of the bag. Do not disconnect the bag from the catheter. Follow Up with your doctor or urologist (specialist in the urinary system), or as advised by our staff. If a catheter was left in place, it will need to be removed or changed soon. Get Prompt Medical Attention if any of the following occur: Fever over 100.4 F (38.0 C) Bladder pain or fullness Abdominal swelling, nausea or vomiting or back pain Catheter falls out or stops draining (no urine from catheter in six hours) Weakness, dizziness or fainting Methylprednisolone Oral tablet What is this medicine? METHYLPREDNISOLONE (meth ill pred NISS oh lone) is a corticosteroid. It is commonly used to treat inflammation of the skin, joints, lungs, and other organs. Common conditions treated include asthma, allergies, and arthritis. It is also used for other conditions, such as blood disorders and diseases of the adrenal glands. How should I use this medicine? Take this medicine by mouth with a drink of water. Follow the directions on the prescription label. Take it with food or milk to avoid stomach upset. If you are taking this medicine once a day, take it in the morning. Do not take more medicine than you are told to take. Do not suddenly stop taking your medicine because you may develop a severe reaction. Your doctor will tell you how much medicine to take. If your doctor wants you to stop the medicine, the dose may be slowly lowered over time to avoid any side effects. Talk to your fire investigator regarding the use of this medicine in children. Special care may be needed. What side effects may I notice from receiving this medicine? Side effects that you should report to your doctor or health medicare specialist as soon as possible: allergic reactions like skin rash, itching or hives, swelling of the face, lips, or tongue eye pain, decreased or blurred vision, or bulging eyes fever, sore throat, sneezing, cough, or other signs of infection, wounds that will not heal increased thirst mental depression, mood swings, mistaken feelings of self importance or of being mistreated pain in hips, back, ribs, arms, shoulders, or legs swelling of the ankles, feet, hands trouble passing urine or change in the amount of urine Side effects that usually do not require medical attention (report to your doctor or health medicare specialist if they continue or are bothersome): confusion, excitement, restlessness headache nausea, vomiting skin problems, acne, thin and shiny skin weight gain What may interact with this medicine? Do not take this medicine with any of the following medications: mifepristone This medicine may also interact with the following medications: tacrolimus vaccines warfarin What if I miss a dose? If you miss a dose, take it as soon as you can. If it is almost time for your next dose, talk to your doctor or health medicare specialist. You may need to miss a dose or take an extra dose. Do not take double or extra doses without advice. Where should I keep my medicine? Keep out of the reach of children. Store at room temperature between 20 and 25 degrees C (68 and 77 degrees F). Throw away any unused medicine after the expiration date. What should I tell my health care provider before I take this medicine? They need to know if you have any of these conditions: Mark's syndrome diabetes glaucoma heart problems or disease high blood pressure infection such as herpes, measles, tuberculosis, or chickenpox kidney disease liver disease mental problems myasthenia gravis osteoporosis seizures stomach ulcer or intestine disease including colitis and diverticulitis thyroid problem an unusual or allergic reaction to lactose, methylprednisolone, other medicines, foods, dyes, or preservatives or trying to get breast-feeding What should I watch for while using this medicine? Visit your doctor or health medicare specialist for regular checks on your progress. If you are taking this medicine for a long time, carry an identification card with your name and address, the type and dose of your medicine, and your doctor's name and address. The medicine may increase your risk of getting an infection. Stay away from people who are sick. Tell your doctor or health medicare specialist if you are around anyone with measles or chickenpox. If you are going to have surgery, tell your doctor or health medicare specialist that you have taken this medicine within the last twelve months. Ask your doctor or health medicare specialist about your diet. You may need to lower the amount of salt you eat. The medicine can increase your blood sugar. If you are a diabetic check with your doctor if you need help adjusting the dose of your diabetic medicine. You have been given the following additional information: Back Pain (Acute Or Chronic) Hypertension, Established Urinary Incontinence, Male (Adult) Methylprednisolone Oral tablet (Electronically signed by Misael Rosas MD 08/09/2016 9:30)
--- NOTE | 2016-08-09 09:31 | ED MED RECONCILIATION SUMMARY ---
Patient: RIZWAN GOFF Medication Reconciliation Report [facility] VisitID: [id number] [address] [place] [address] 51y, F Registration Date/Time: 08/08/2016 Weight: 126.5 kg Height/Length: 62 in. BMI: 51.1 ALLERGIES: No Known Drug Allergy The patient's Home Medications are listed below: CONTINUE TAKING THE FOLLOWING MEDICATIONS: Claritin Oral Flonase Nasal Qvar Inhalation Triamterene-HCTZ Oral The source(s) of the original Home Medication information: Not obtained. The following Medications were given to the patient in the Emergency Department: IV NS IV Fluids bolus 500 mL over 30 minute(s), then 1000 mL/hr, administered: 08/08/2016 9:19:00 PM Dilaudid [IVP] IVP 0.5 mg, administered: 08/08/2016 9:20:00 PM Zofran [IVP] IVP 4 mg, administered: 08/08/2016 9:22:00 PM SOLU-MEDROL [IVP] IVP 125 mg, administered: 08/08/2016 9:24:00 PM The following Medications were prescribed to the patient: Medrol Dosepak: take according to package directions. Dispense one (1) dosepak. No refills. Substitution is permissible. -- Misael Rosas MD
== END 2016-08-09 02:34 | disposition home or self-care (01) ==
LOC: ED SRH 19:40
DX: M54.5 Low back pain (principal); R15.9 Full incontinence of feces; I10 Essential (primary) hypertension; R32 Unspecified urinary incontinence; J45.909 Unspecified asthma, uncomplicated; Z79.899 Other long term (current) drug therapy
CPT/HCPCS: 90004; 90100; 92760; 92761; 92762; 92763; 92764; 92765; 92766; 92767; 93070; 94060; 95059